=== PATIENT | female | born 1940 | race Caucasian/White ===

== ENCOUNTER 2017-01-30 08:51 | Day surgery (SDC) | payer MEDICARE, BC ==
[~2017-01-30 08:51] MED LIST: KETOROLAC TROMETHAMINE 0.45% 4 DROP/0.4 ML DROPERETTE OD PRN; MIDAZOLAM 2 MG/2 ML INJ ONE
[2017-01-30] MEDS: TETRACAINE HCL 0.5% OPH SOLN 2 ML OD PRN ×4 (09:40→10:39)
[2017-01-30] MEDS: CYCLOPENTOLATE 0.2%/PHENYLEPHRINE 1% OPH SOLN 2 ML OD PRN ×3 (09:41→10:07)
[2017-01-30] MEDS: TROPICAMIDE 1% OPH SOLN 3 ML OD PRN ×3 (09:41→10:07)
[2017-01-30] MEDS: BESIFLOXACIN HCL 0.6% OPH SUSP 5 ML BOTTLE OD PRN ×4 (09:42→11:12)
[2017-01-30] MEDS: CHONDR SU A NA/HYALUR INTRAOC KIT (SURGICARE) ONE ×2 (10:47)
[2017-01-30] MEDS: PHENYLEPHRINE/KETOROLAC 1%-0.3% 4 ML VIAL ONE ×2 (10:47)
[2017-01-30] MEDS: LIDOCAINE 1% INJ-PF (10 MG/ML) 30 ML SDV ONE ×2 (10:47)
--- NOTE | 2017-01-30 12:24 | [facility] OPERATIVE REPORT E ---
[facility] Operative Report NAME: JONATHAN ARNOLD AGE: 77Y DATE OF SURGERY: ROOM: PREOPERATIVE DIAGNOSES: 1. CATARACT, RIGHT EYE. 2. PUPIL MYOSIS OF THE RIGHT EYE. DISCHARGE DIAGNOSES: 1. CATARACT, RIGHT EYE. 2. PUPIL MYOSIS OF THE RIGHT EYE. OPERATION: Complex cataract extraction with use of Malyugin ring due to a very myotic pupil. Lens is a 20.5 diopter lens. SURGEON: JAH OLEARY M.D. ANESTHESIA: Topical. PROCEDURE: After obtaining appropriate consent, the patient's right eye was prepped and draped in sterile fashion as well as the surgeon in a sterile manner and cataract surgery was started. First a paracentesis blade was used to make a small side-port incision. Viscoelastic was used to inflate the anterior chamber. Next a 2.4 mm incision was made with the paracentesis blade. A continuous capsulorrhexis incision was made using a cystotome and Utrata forceps. Following this hydrodissection was carried out to make the lens fully loose and mobile and it was rotated 90 degrees. Following this, a kddxce-slr-zxfdmdg technique was used to phacoemulsify the lens with a CDE of 24.79. The remaining cortex was removed with irrigation/aspiration. Provisc was instilled into the capsular bag to inflate the bag. A SN60WF, 20.5 sn60wf diopter lens was placed. The remaining viscoelastic material was removed with irrigation/aspiration. Following this, a 10-0 nylon suture was used to close the incision and it was found to be watertight. Vigamox was instilled in the eye and a protective shield was placed over the eye. The patient returned to the postoperative recovery in stable condition. Prior to making the capsulorrhexis a Malyugin ring was inserted due to very myotic pupil. This was removed at the end of the case. DICTATING PHYSICIAN: JAH OLEARY M.D. [id number] PHY#: [id number] ID: [id number] JOB#: [id number] ACCT: [id number] cc:JAH OLEARY M.D. > [facility]PITALRichar
--- NOTE | 2017-01-30 12:34 | [facility] DISCHARGE SUMMARY E ---
[facility] Discharge Summary NAME: JONATHAN ARNOLD AGE: 77Y ADMITTED: 01/30/2017 DISCHARGED: HISTORY: The patient is a 76-year-old female who underwent cataract extraction with insertion of intraocular lens of the right eye. DIAGNOSIS: 1. Cataract, right eye. 2. Pupil myosis of the right eye requiring a Malyugin ring making this a complex cataract extraction. HOSPITAL COURSE: She underwent surgery because she was having difficulty reading road signs and having significant glare from headlights. DISCHARGE INSTRUCTIONS: 1. She should be on a regular diet. 2. No bending of her waist, no heavy lifting. 3. She should Besivance, Ilevro, and Durezol at 3 p.m. and 8 p.m. and sleep with a rigid shield. 4. I will see her 1 day postoperative tomorrow. DICTATING PHYSICIAN: JAH OLEARY M.D. [id number] PHY#: [id number] ID: [id number] JOB#: [id number] ACCT: [id number] cc:JAH OLEARY M.D. >
== END 2017-01-30 12:02 | disposition home or self-care (01) ==
LOC: SC 08:51
PROVIDERS: ATTEND Internal Medicine
PROC: 08RJ3JZ Replacement of Right Lens with Synthetic Substitute, Percutaneous Approach (ICD-10-PCS; principal; 2017-01-30 10:30)
DX: H25.13 Age-related nuclear cataract, bilateral (principal); H57.03 Miosis; H40.1431 Capsular glaucoma with pseudoexfoliation of lens, bilateral, mild stage; E11.9 Type 2 diabetes mellitus without complications; I10 Essential (primary) hypertension; E78.00 Pure hypercholesterolemia, unspecified; Z87.891 Personal history of nicotine dependence; Z79.899 Other long term (current) drug therapy; Z79.82 Long term (current) use of aspirin; Z79.84 Long term (current) use of oral hypoglycemic drugs
CPT/HCPCS: 66982; 82962; V2632; J2250; J3490 ×2; A9270; C9447; 142